=== PATIENT | male | born 1980 | race Caucasian/White ===

== ENCOUNTER 2020-03-22 16:20 | Emergency (ER) | payer MEDICAID ==
[~2020-03-22] VITALS: Ht 162.6 cm; Wt 105.2 kg
[2020-03-22 16:25] VITALS: BP 135/103; Ht 162.6 cm; Wt 105.2 kg
== END 2020-03-22 17:16 | disposition home or self-care (01) ==
LOC: ED 16:20
DX: Z48.811 Encounter for surgical aftercare following surgery on the nervous system (principal); M25.532 Pain in left wrist; M25.531 Pain in right wrist; Z98.890 Other specified postprocedural states; Z86.718 Personal history of other venous thrombosis and embolism